=== PATIENT | male | born 1990 | race Caucasian/White ===

== ENCOUNTER 2018-02-11 20:30 | Emergency (ER) | payer OTHER ==
[~2018-02-11] VITALS: Ht 185.4 cm; Wt 83.9 kg
[2018-02-11 20:29] VITALS: BP 110/80
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
[2018-02-11] MEDS ORDERED: Haloperidol 5mg/ml Inj IM ONE (20:45)
[2018-02-11] MEDS ORDERED: LORazepam Inj 2mg/ml 1ml IM ONE (20:45)
[2018-02-11] MEDS ORDERED: DiphenhydrAMINE 50mg/ml Inj IM ONE (20:45)
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
--- NOTE | 2018-02-11 21:00 | NUR ---
ER Nurse Note: All orders completed per ERMD orders. Pt is asleep, no signs of distress. CT done; awaiting results. Bilateral lac above eyes cleaned, no active bleeding. Will continue to [facility].
[2018-02-11 21:49] LABS: BASOPHILS % (AUTO) 1.3 % (0.0-2.0); EOSINOPHILS % (AUTO) 0.9 % (0.0-3.0); HEMATOCRIT 40.7 % (42.0-52.0); HEMOGLOBIN 14.1 G/DL (14.2-18.0); LYMPHOCYTES % (AUTO) 10.2 % (20.0-45.0); MEAN CORPUSCULAR VOLUME 83 FL (80-99); MONOCYTES % (AUTO) 6.2 % (1.0-10.0); NEUTROPHILS % (AUTO) 81.3 % (45.0-75.0); PLATELET COUNT 215 K/UL (150-450); RED BLOOD COUNT 4.91 M/UL (4.70-6.10); RED CELL DISTRIBUTION WIDTH 10.9 % (11.6-14.8); WHITE BLOOD COUNT 12.7 K/UL (4.8-10.8)
[2018-02-11 22:01] LABS: ANION GAP 9 mmol/L (5-15); BLOOD UREA NITROGEN 25 mg/dL (7-18); CALCIUM 8.8 MG/DL (8.5-10.1); CARBON DIOXIDE 26 MMOL/L (21-32); CHLORIDE 106 MMOL/L (98-107); CREATININE 1.4 MG/DL (0.55-1.30); POTASSIUM 3.5 MMOL/L (3.5-5.1); SODIUM 141 MMOL/L (136-145)
[2018-02-11 22:06] LABS: ALANINE AMINOTRANSFERASE 61 U/L (12-78); ALBUMIN 3.8 G/DL (3.4-5.0); ALBUMIN/GLOBULIN RATIO 1.6 (1.0-2.7); ALKALINE PHOSPHATASE 78 U/L (46-116); ASPARTATE AMINO TRANSFERASE 114 U/L (15-37); BILIRUBIN,TOTAL 0.5 MG/DL (0.2-1.0)
--- NOTE | 2018-02-11 22:36 | Diagnostic Imaging Report ---
EXAM: CT Head Without Intravenous Contrast CLINICAL HISTORY: AMS TECHNIQUE: Axial computed tomography images of the head/brain without intravenous contrast. CTDI is 140.91 mGy and DLP is 2551 mGy-cm. One or more of the following dose reduction techniques were used: automated exposure control, adjustment of the mA and/or kV according to patient size, use of iterative reconstruction technique. Coronal and sagittal reconstructions are performed COMPARISON: No relevant prior studies available. FINDINGS: Artifacts: Motion artifact decreases the sensitivity of this exam. Brain: Unremarkable. No hemorrhage. No significant white matter disease. No edema. Ventricles: Unremarkable. No ventriculomegaly. Bones/joints: Unremarkable. No acute fracture. Soft tissues: Unremarkable. Sinuses: Unremarkable as visualized. No acute sinusitis. Mastoid air cells: Unremarkable as visualized. No mastoid effusion. IMPRESSION: No acute findings.
[2018-02-11 22:50] VITALS: BP 112/76
[2018-02-11 23:00] VITALS: BP 112/78
--- NOTE | 2018-02-11 23:00 | NUR ---
ER Nurse Note: Patient seen, treated, medically cleared for discharged/booking from medical care. Discharge instructions and prescriptions given with repeat verbalization from [employer]. Instructed pt to follow up with primary care physican within one week. Pt awake, alert and oriented x3. All medical devices such as ID band were removed; IV removed; clean and bandaged. Patient ambulated out with all personal belongings with steady gait.
== END 2018-02-11 23:00 ==
LOC: EDBD 20:30 → EMR 21:15
DX: S01.111A Laceration without foreign body of right eyelid and periocular area, initial encounter (principal); S09.90XA Unspecified injury of head, initial encounter; R46.2 Strange and inexplicable behavior; X58.XXXA Exposure to other specified factors, initial encounter
CPT/HCPCS: 36415; 70450; 80053; 80307; 85025; 96372; 99284; G0480; J1200; J1630; 80329